=== PATIENT | male | born 1980 | race American Indian/Alaskan Native ===

== ENCOUNTER 2018-08-13 14:51 | Emergency (ER) | payer SELFPAY ==
[2018-08-13 15:17] VITALS: BP 124/69
--- NOTE | 2018-08-13 15:36 | Emergency Department Report ---
ED General Adult HPI - General Chief complaint: Pain General Stated complaint: FEET PAIN Time Seen by Provider: 08/13/18 15:26 Source: patient Mode of arrival: Ambulatory Limitations: No Limitations - History of Present Illness Initial comments: Mr. Garcia is 38-year-old male who fell one story approximately 2 weeks ago. He still has persistent back and bilateral foot pain. 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 Lumbar CT foot and ankle x-rays all without acute fracture but did reveal soft tissue swelling in the forefoot. -: Gradual, week(s) (2) Location: back, left, right, lower extremity Radiation: non-radiation Severity scale (0 -10): 8 Quality: aching Consistency: constant Improves with: rest Worsens with: movement Associated Symptoms: denies other symptoms - Related Data Previous Rx's Medication Instructions Recorded Last Taken Type FLUoxetine [PROzac] 10 mg PO QDAY #7 tablet 06/17/18 Unknown Rx [place] Carbonate 300 mg PO Q8H #21 tablet 06/17/18 Unknown Rx Naproxen [Naprosyn] 500 mg PO BID #20 tablet 06/17/18 Unknown Rx Olanzapine [Olanzapine Odt] 10 mg PO QDAY #7 tab.rapdis 06/17/18 Unknown Rx HYDROcodone/APAP 10-325 [Eugene 1 each PO Q6HR PRN #14 tablet 07/28/18 Unknown Rx 10/325] HYDROcodone/ACETAMINOPHEN [Eugene 1 each PO Q6H PRN #10 tablet 08/13/18 Unknown Rx 10-325 Tablet] Allergies Allergy/AdvReac Type Severity Reaction Status Date / Time No Known Allergies Allergy Verified 08/13/18 15:16 ED Review of Systems ROS: Stated complaint: FEET PAIN Other details as noted in HPI Constitutional: denies: fever, malaise Respiratory: denies: cough Cardiovascular: denies: chest pain ED Past Medical Hx - Past Medical History Previous Medical History?: Yes Hx Psychiatric Treatment: Yes (Bipolar) Hx Asthma: Yes - Surgical History Past Surgical History?: No - Social History Smoking Status: Never Smoker Substance Use Type: None - Medications Home Medications: Home Medications Medication Instructions Recorded Confirmed Last Taken Type FLUoxetine [PROzac] 10 mg PO QDAY #7 tablet 06/17/18 Unknown Rx [place] Carbonate 300 mg PO Q8H #21 tablet 06/17/18 Unknown Rx Naproxen [Naprosyn] 500 mg PO BID #20 tablet 06/17/18 Unknown Rx Olanzapine [Olanzapine Odt] 10 mg PO QDAY #7 tab.rapdis 06/17/18 Unknown Rx HYDROcodone/APAP 10-325 [Eugene 1 each PO Q6HR PRN #14 tablet 07/28/18 Unknown Rx 10/325] HYDROcodone/ACETAMINOPHEN [Eugene 1 each PO Q6H PRN #10 tablet 08/13/18 Unknown Rx 10-325 Tablet] ED Physical Exam - General Limitations: No Limitations General appearance: alert, in no apparent distress - Head Head exam: Present: atraumatic, normocephalic - Respiratory Respiratory exam: Absent: respiratory distress - Extremities Exam Extremities exam: Present: normal inspection - Back Exam Back exam: Present: normal inspection - Neurological Exam Neurological exam: Present: alert, oriented X3, normal gait ED Course Vital Signs 08/13/18 15:10 Temperature 98.2 F Pulse Rate 82 Respiratory 18 Rate Blood Pressure 124/69 O2 Sat by Pulse 96 Oximetry ED Medical Decision Making - Medical Decision Making I reviewed electronic record. It appears the patient did have significant trauma mechanism without severe injury. I performed inquiry/search on [place] PDMP. Without evidence of drug-seeking behavior, I felt 10 additional tablets of Eugene would be prudent and beneficial to patient Critical care attestation.: If time is entered above; I have spent that time in minutes in the direct care of this critically ill patient, excluding procedure time. ED Disposition Clinical Impression: Back pain, Bilateral foot pain Disposition: TO HOME OR SELFCARE Is pt being admited?: No Does the pt Need Aspirin: No Condition: Stable Prescriptions: HYDROcodone/ACETAMINOPHEN [Eugene 10-325 Tablet] 1 each PO Q6H PRN #10 tablet PRN Reason: Pain , Severe (7-10) Referrals: RIGOBERTO GREENBERG MD [Staff Physician] - 3-5 Days Forms: Work/School Release Form(ED)
== END 2018-08-13 15:45 | disposition home or self-care (01) ==
LOC: ED 14:51
DX: M79.671 Pain in right foot (principal); M79.672 Pain in left foot; M54.9 Dorsalgia, unspecified; F31.9 Bipolar disorder, unspecified; J45.909 Unspecified asthma, uncomplicated
CPT/HCPCS: 99282

== ENCOUNTER 2018-09-13 14:27 | Emergency (ER) | payer SELFPAY ==
[2018-09-13 14:36] VITALS: BP 128/74
--- NOTE | 2018-09-13 14:37 | Emergency Department Report ---
Blank Doc - Documentation Documentation: This is a 38-year-old male that presents with acute on chronic lower back pain. Stated lifts a lot of heavy stuff at work. Denies any urinary symptoms. This initial assessment diagnostic orders/clinical plan/treatment(s) is/are subject to change based on patient's health status, clinical progression and re- assessment by fellow clinical providers in the ED. Further treatment and workup at subsequent clinical providers discretion. Patient/guardians urged not to elope from ED s their condition may be serious if not clinically assessed and managed. Initial orders include: 1-Patient sent to [facility] for further evaluation and treatment
[2018-09-13] MEDS ORDERED: FLEXERIL PO ONE (17:21)
[2018-09-13] MEDS ORDERED: TORADOL IM ONE (17:21)
--- NOTE | 2018-09-13 17:22 | Emergency Department Report ---
ED Back Pain/Injury HPI - General Chief Complaint: Back Pain/Injury Stated Complaint: BACK PAIN Time Seen by Provider: 09/13/18 14:35 Source: patient Limitations: No Limitations - History of Present Illness Initial Comments: Patient is a 38-year-old male who comes to the ER often with pain. Today he is having his acute on chronic back pain. There is no new trauma. 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 Patient states he is not taking any home medications although the chart would suggest that he is supposed to be. Patient states he has no primary care doctor. -: Gradual, year(s) Similar Symptoms Previously: Yes Place: home Radiation: left leg, right leg Severity: mild Quality: dull Consistency: constant Worsens With: movement Context: while lifting Associated Symptoms: denies other symptoms - Related Data Previous Rx's Medication Instructions Recorded Last Taken Type FLUoxetine [PROzac] 10 mg PO QDAY #7 tablet 06/17/18 Unknown Rx [place] Carbonate 300 mg PO Q8H #21 tablet 06/17/18 Unknown Rx Olanzapine [Olanzapine Odt] 10 mg PO QDAY #7 tab.rapdis 06/17/18 Unknown Rx Cyclobenzaprine [Flexeril] 10 mg PO TID PRN #10 tablet 09/13/18 Unknown Rx predniSONE [Deltasone] 20 mg PO DAILY #5 tablet 09/13/18 Unknown Rx Allergies Allergy/AdvReac Type Severity Reaction Status Date / Time No Known Allergies Allergy Verified 09/13/18 14:32 ED Review of Systems ROS: Stated complaint: BACK PAIN Other details as noted in HPI Comment: All other systems reviewed and negative Constitutional: denies: see HPI Eyes: denies: eye pain ENT: denies: throat pain Respiratory: denies: orthopnea Endocrine: denies: intolerance to cold Gastrointestinal: denies: abdominal pain Genitourinary: denies: urgency Musculoskeletal: back pain Skin: denies: lesions Neurological: denies: headache Psychiatric: denies: anxiety Hematological/Lymphatic: denies: easy bleeding ED Back Pain Physical Exam - Exam General: Vital signs noted. No distress. Alert and acting appropriately. Back/Abdomen: Yes Straight Leg Raise Pain, No Perilumbar Tenderness, No Sacroiliac Tenderness, No Flank Tenderness Neuro: Yes Normal Sensation, Yes Normal DTR's, Yes Normal Gait, No Motor Weakness ED Course Vital Signs 09/13/18 14:34 Temperature 97.8 F Pulse Rate 83 Respiratory 16 Rate Blood Pressure 128/74 O2 Sat by Pulse 99 Oximetry ED Medical Decision Making - Medical Decision Making a/c pain see history no new trauma medicated for pain dc home with pcp follow up Critical care attestation.: If time is entered above; I have spent that time in minutes in the direct care of this critically ill patient, excluding procedure time. ED Disposition Clinical Impression: Back pain, Chronic pain Disposition: DC-01 TO HOME OR SELFCARE Is pt being admited?: No Does the pt Need Aspirin: No Condition: Stable Instructions: Low Back Strain (ED), Chronic Back Pain (ED) Additional Instructions: warm compresses med as ordered follow up pcp referral below Referrals: PRIMARY CARE [Primary Care Provider] - 3-5 Days [facility] [Outside] - 3-5 Days Time of Disposition: 17:24
[2018-09-13] MEDS ORDERED: DELTASONE PO NR (18:00)
== END 2018-09-13 17:34 | disposition home or self-care (01) ==
LOC: ED 14:27
DX: G89.29 Other chronic pain (principal); M54.9 Dorsalgia, unspecified
CPT/HCPCS: 96372; 99282; J1885

== ENCOUNTER 2019-03-16 03:25 | Inpatient (IN) | payer OTHER ==
[2019-03-16] MEDS ORDERED: NACL 0.9% 1000 ML 1,000 ML IV ONE (04:42)
--- NOTE | 2019-03-16 04:52 | Emergency Department Report ---
ED Neuro Deficit HPI - General Chief Complaint: Extremity Injury, Upper Stated Complaint: ARM PAIN Time Seen by Provider: 03/16/19 04:42 Source: patient Mode of arrival: Ambulatory Limitations: No Limitations - History of Present Illness Initial Comments: Mr. Garcia is a 39 yo male with hx of bipolar disorder and asthma who presents with right arm weakness and pain. He woke up with arm weakness. He felt as if he may have slept wrong on the arm. He has burning and tingling his fingers. Can not bend the elbow or wiggle fingers. Can only shrug at right shoulder. No speech or gait difficulty. Brought to Ed by relative. He explained that he had a small stroke while incarcerated. He has slurred speech at that time. No hx of DM, HTN, dyslipidemia. +tobacco use He awakened with symptoms 2 hours ago. -: This morning Location: right arm Presenting Symptoms: Present: Weak/Paralyzed One Side History of same: No (hx of slurred speech) Place: home Severity: severe Quality: weak, tingling Improves With: none Worsens With: none On Anticoagulants: No Context: sudden onset Associated Symptoms: denies other symptoms - Related Data Home Medications: Previous Rx's Medication Instructions Recorded Last Taken Type FLUoxetine [PROzac] 10 mg PO QDAY #7 tablet 06/17/18 Unknown Rx Rosank[place] Carbonate 300 mg PO Q8H #21 tablet 06/17/18 Unknown Rx Olanzapine [Olanzapine Odt] 10 mg PO QDAY #7 tab.rapdis 06/17/18 Unknown Rx Cyclobenzaprine [Flexeril] 10 mg PO TID PRN #10 tablet 09/13/18 Unknown Rx predniSONE [Deltasone] 20 mg PO DAILY #5 tablet 09/13/18 Unknown Rx Prednisone [predniSONE 10 mg 10 mg PO .TAPER #1 tab.ds.pk 12/08/18 Unknown Rx (6-Day Pack, 21 Tabs)] traMADol [Ultram 50 MG tab] 50 mg PO Q6HR PRN #12 tablet 12/08/18 Unknown Rx Allergies/Adverse Reactions: Allergies Allergy/AdvReac Type Severity Reaction Status Date / Time No Known Allergies Allergy Verified 09/13/18 14:32 ED Review of Systems ROS: Stated complaint: ARM PAIN Other details as noted in HPI Comment: All other systems reviewed and negative Constitutional: denies: fever, malaise Respiratory: denies: cough Cardiovascular: denies: chest pain ED Past Medical Hx - Past Medical History Previous Medical History?: Yes Hx Psychiatric Treatment: Yes (Bipolar) Hx Asthma: Yes - Surgical History Past Surgical History?: No - Social History Smoking Status: Current Every Day Smoker Substance Use Type: Alcohol - Medications Home Medications: Home Medications Medication Instructions Recorded Confirmed Last Taken Type FLUoxetine [PROzac] 10 mg PO QDAY #7 tablet 06/17/18 Unknown Rx Rosanky Carbonate 300 mg PO Q8H #21 tablet 06/17/18 Unknown Rx Olanzapine [Olanzapine Odt] 10 mg PO QDAY #7 tab.rapdis 06/17/18 Unknown Rx Cyclobenzaprine [Flexeril] 10 mg PO TID PRN #10 tablet 09/13/18 Unknown Rx predniSONE [Deltasone] 20 mg PO DAILY #5 tablet 09/13/18 Unknown Rx Prednisone [predniSONE 10 mg 10 mg PO .TAPER #1 tab.ds.pk 12/08/18 Unknown Rx (6-Day Pack, 21 Tabs)] traMADol [Ultram 50 MG tab] 50 mg PO Q6HR PRN #12 tablet 12/08/18 Unknown Rx ED Neuro Physical Exam - General Limitations: No Limitations General appearance: alert, in no apparent distress Suspected Stroke: Yes - Head Head exam: Present: atraumatic, normocephalic - Eye Eye exam: Present: normal appearance - ENT ENT exam: Present: mucous membranes moist - Neck Neck exam: Present: normal inspection, full ROM. Absent: tenderness, meningismus - Respiratory Respiratory exam: Present: normal lung sounds bilaterally. Absent: respiratory distress, wheezes, rales, rhonchi - Cardiovascular Cardiovascular Exam: Present: regular rate, normal rhythm, normal heart sounds. Absent: systolic murmur, diastolic murmur, rubs, gallop - GI/Abdominal GI/Abdominal exam: Present: soft, normal bowel sounds. Absent: distended, tenderness, guarding, rebound - Rectal Rectal exam: Present: deferred - Extremities Exam Extremities exam: Present: normal inspection - Back Exam Back exam: Present: normal inspection - Neurological Exam Neurological exam: Present: alert, oriented X3 - NIHSS Assessment Interval: Baseline 1a. Level of Consciousness: alert/keenly responsive 1b. LOC Questions: answers both correctly 1c. LOC Commands: performs tasks correctly 2. Best Gaze: normal 3. Visual: no visual loss 4. Facial Palsy: normal symmetrical movement 5b. Motor Arm Right: no movement 5a. Motor Arm Left: no drift 6a. Motor Leg Left: no drift 6b. Motor Leg Right: no drift 7. Limb Ataxia: absent 8. Sensory: normal 9. Best Language: no aphasia 10. Dysarthria: normal 11. Extinction/Inattention: no abnormality Total Score: 4 Stroke Severity: Minor Stroke - Psychiatric Psychiatric exam: Present: normal affect, normal mood - Skin Skin exam: Present: warm, dry, intact, normal color. Absent: rash ED Course Vital Signs 03/16/19 03/16/19 03/16/19 03:38 04:00 05:20 Temperature 97.8 F Pulse Rate 81 72 Respiratory 18 15 12 Rate Blood Pressure 112/76 Blood Pressure 116/74 [Left] O2 Sat by Pulse 95 97 100 Oximetry - Lab Data Result diagrams: 03/16/19 02:47 03/16/19 04:50 Lab Results 03/16/19 03/16/19 03/16/19 Range/Units 02:47 04:50 04:50 WBC 10.5 (4.5-11.0) K/mm3 RBC 4.18 (3.65-5.03) M/mm3 Hgb 12.5 (11.8-15.2) gm/dl Hct 38.2 (35.5-45.6) % MCV 91 (84-94) fl MCH 30 (28-32) pg MCHC 33 (32-34) % RDW 13.6 (13.2-15.2) % Plt Count 195 (140-440) K/mm3 Lymph % (Auto) 9.8 L (13.4-35.0) % Wood % (Auto) 6.4 (0.0-7.3) % Eos % (Auto) 0.7 (0.0-4.3) % Baso % (Auto) 0.2 (0.0-1.8) % Lymph # 1.0 L (1.2-5.4) K/mm3 Wood # 0.7 (0.0-0.8) K/mm3 Eos # 0.1 (0.0-0.4) K/mm3 Baso # 0.0 (0.0-0.1) K/mm3 Seg Neutrophils % 82.9 H (40.0-70.0) % Seg Neutrophils # 8.7 H (1.8-7.7) K/mm3 PT 12.9 (12.2-14.9) Sec. INR 1.00 (0.87-1.13) APTT 23.5 L (24.2-36.6) Sec. Sodium 140 (137-145) mmol/L Potassium 3.8 (3.6-5.0) mmol/L Chloride 104.3 (98-107) mmol/L Carbon Dioxide 24 (22-30) mmol/L Anion Gap 16 mmol/L BUN 9 (9-20) mg/dL Creatinine 1.3 (0.8-1.5) mg/dL Estimated GFR > 60 ml/min BUN/Creatinine Ratio 7 % Glucose 221 H (75-100) mg/dL POC Glucose (70-105) Calcium 9.1 (8.4-10.2) mg/dL Total Bilirubin 1.10 (0.1-1.2) mg/dL AST 41 H (5-40) units/L ALT 19 (7-56) units/L Alkaline Phosphatase 99 (35-129) units/L Troponin T < 0.010 (0.00-0.029) ng/mL Total Protein 7.0 (6.3-8.2) g/dL Albumin 4.3 (3.9-5) g/dL Albumin/Globulin Ratio 1.6 % Salicylates (2.8-20.0) mg/dL Acetaminophen (10.0-30.0) ug/mL Rosanky (0.0-1.2) mmol/L Plasma/Serum Alcohol (0-0.07) % 03/16/19 03/16/19 03/16/19 Range/Units 04:50 04:52 04:53 WBC (4.5-11.0) K/mm3 RBC (3.65-5.03) M/mm3 Hgb (11.8-15.2) gm/dl Hct (35.5-45.6) % MCV (84-94) fl MCH (28-32) pg MCHC (32-34) % RDW (13.2-15.2) % Plt Count (140-440) K/mm3 Lymph % (Auto) (13.4-35.0) % Wood % (Auto) (0.0-7.3) % Eos % (Auto) (0.0-4.3) % Baso % (Auto) (0.0-1.8) % Lymph # (1.2-5.4) K/mm3 Wood # (0.0-0.8) K/mm3 Eos # (0.0-0.4) K/mm3 Baso # (0.0-0.1) K/mm3 Seg Neutrophils % (40.0-70.0) % Seg Neutrophils # (1.8-7.7) K/mm3 PT (12.2-14.9) Sec. INR (0.87-1.13) APTT (24.2-36.6) Sec. Sodium (137-145) mmol/L Potassium (3.6-5.0) mmol/L Chloride (98-107) mmol/L Carbon Dioxide (22-30) mmol/L Anion Gap mmol/L BUN (9-20) mg/dL Creatinine (0.8-1.5) mg/dL Estimated GFR ml/min BUN/Creatinine Ratio % Glucose (75-100) mg/dL POC Glucose 223 H (70-105) Calcium (8.4-10.2) mg/dL Total Bilirubin (0.1-1.2) mg/dL AST (5-40) units/L ALT (7-56) units/L Alkaline Phosphatase (35-129) units/L Troponin T (0.00-0.029) ng/mL Total Protein (6.3-8.2) g/dL Albumin (3.9-5) g/dL Albumin/Globulin Ratio % Salicylates < 0.3 L (2.8-20.0) mg/dL Acetaminophen (10.0-30.0) ug/mL Rosanky 0.1 (0.0-1.2) mmol/L Plasma/Serum Alcohol < 0.01 (0-0.07) % 03/16/19 Range/Units 04:53 WBC (4.5-11.0) K/mm3 RBC (3.65-5.03) M/mm3 Hgb (11.8-15.2) gm/dl Hct (35.5-45.6) % MCV (84-94) fl MCH (28-32) pg MCHC (32-34) % RDW (13.2-15.2) % Plt Count (140-440) K/mm3 Lymph % (Auto) (13.4-35.0) % Wood % (Auto) (0.0-7.3) % Eos % (Auto) (0.0-4.3) % Baso % (Auto) (0.0-1.8) % Lymph # (1.2-5.4) K/mm3 Wood # (0.0-0.8) K/mm3 Eos # (0.0-0.4) K/mm3 Baso # (0.0-0.1) K/mm3 Seg Neutrophils % (40.0-70.0) % Seg Neutrophils # (1.8-7.7) K/mm3 PT (12.2-14.9) Sec. INR (0.87-1.13) APTT (24.2-36.6) Sec. Sodium (137-145) mmol/L Potassium (3.6-5.0) mmol/L Chloride (98-107) mmol/L Carbon Dioxide (22-30) mmol/L Anion Gap mmol/L BUN (9-20) mg/dL Creatinine (0.8-1.5) mg/dL Estimated GFR ml/min BUN/Creatinine Ratio % Glucose (75-100) mg/dL POC Glucose (70-105) Calcium (8.4-10.2) mg/dL Total Bilirubin (0.1-1.2) mg/dL AST (5-40) units/L ALT (7-56) units/L Alkaline Phosphatase (35-129) units/L Troponin T (0.00-0.029) ng/mL Total Protein (6.3-8.2) g/dL Albumin (3.9-5) g/dL Albumin/Globulin Ratio % Salicylates (2.8-20.0) mg/dL Acetaminophen < 5.0 L (10.0-30.0) ug/mL Rosanky (0.0-1.2) mmol/L Plasma/Serum Alcohol (0-0.07) % - Medical Decision Making Upon arrival to the treatment room, the nurse came to me for hypotension. When I evaluated patient he had normal vital signs upon arrival. I suspect that blood pressures due to equipment failure. I then realized that he had severe weakness in his right upper extremity. At that time I initiated code stroke. Unclear time of onset. Mr. garcia stated that he awakened with arm weakness 2 hours prior. Arm weakness DDX: acute CVA vs cervical radiculopathy, teleneurologist states that patient will need MRI brain and MRI cervical spine to delineate. When I reassessed Mr. garcia, he had both hands folded on his lap. It is apparent that he does have some strength in the extremity. According teleneurologist, time last normal occurred 9:30 PM. He is not a candidate for TPA. Admitted to hospitalist for further evaluation Critical Care Time: Yes Critical care time in (mins) excluding proc time.: 40 Critical care attestation.: If time is entered above; I have spent that time in minutes in the direct care of this critically ill patient, excluding procedure time. 40 minutes of critical care time excluding procedures were used in the care of the patient. Patient required multiple assessments and interventions. I rev iewed the electronic medical record. I spoke with consultants involved in the care of the patient. ED Disposition Clinical Impression: Weakness of right upper extremity Disposition: - OP ADMIT IP TO THIS HOSP Is pt being admited?: No Does the pt Need Aspirin: No Condition: Stable
[2019-03-16 05:04] LABS: Basophils % (Auto) 0.2 % (0.0-1.8); Eosinophils # (Auto) 0.1 K/mm3 (0.0-0.4); Eosinophils % (Auto) 0.7 % (0.0-4.3); Hematocrit 38.2 % (35.5-45.6); Hemoglobin 12.5 gm/dl (11.8-15.2); Lymphocytes % (Auto) 9.8 % (13.4-35.0); Mean Corpuscular HGB Conc 33 % (32-34); Mean Corpuscular Volume 91 fl (84-94); Monocytes # (Auto) 0.7 K/mm3 (0.0-0.8); Monocytes % (Auto) 6.4 % (0.0-7.3); Platelet Count 195 K/mm3 (140-440); Red Blood Count 4.18 M/mm3 (3.65-5.03); Red Cell Distribution Width 13.6 % (13.2-15.2)
[2019-03-16 05:16] LABS: Partial Thromboplastin Time 23.5 Sec. (24.2-36.6)
--- NOTE | 2019-03-16 05:19 | Emergency Department Report ---
ED General Adult HPI - General Chief complaint: Extremity Injury, Upper Stated complaint: ARM PAIN Time Seen by Provider: 03/16/19 04:42 Source: patient Mode of arrival: Ambulatory Limitations: No Limitations - History of Present Illness Initial comments: [facility] Date of Service: 03/16/2019 04:46:43 Impression: Right arm weakness and numbness Metrics: Last Known Well: 03/15/2019 21:00:00 [employer] Notification Time: 03/16/2019 04:46:43 Arrival Time: 03/16/2019 03:25:00 Stamp Time: 03/16/2019 04:46:43 Time First Login Attempt: 03/16/2019 04:48:58 Video Start Time: 03/16/2019 04:48:58 Symptoms: right arm numbness NIHSS Start Assessment Time: 03/16/2019 05:06:31 Patient is not a candidate for tPA. Patient was not deemed candidate for tPA thrombolytics because of Last Well Known above 4.5 hours. Video End Time: 03/16/2019 05:14:49 CT head showed no acute hemorrhage or acute core infarct. CT head was reviewed. Advanced imaging was not obtained as the presentation was not suggestive of Large Vessel Occlusive Disease. ER physician notified of the decision on thrombolytics management. Comments: Given the symptoms started with bilateral arm numbness would consider C spine lesion most likely but a left hemisphere stroke is in the differential as well. Our recommendations are outlined below. Recommendations: Initiate Aspirin 81 MG Daily MRI C spine Recommended Scan: MRI Head Without Contrast Lipid Panel to Be Obtained, if Not Done in the Last Three Months Therapies: Physical Therapy, Occupational Therapy, Speech Therapy Assessment When Applicable Dysphaghia Screen: Swallow Evaluation, Bedside DVT prophylaxis: SCDs, Pneumatic Compression Disposition: Follow up with Teleneurology Follow up Sign Out: Discussed with Emergency Department Provider History of Present Illness: Patient is a 39 years old Male. Patient was brought by EMS for symptoms of right arm numbness 39 yo M with history of bipolar, stroke, and asthma who presents with bilateral arm numbness and right sided weakness that he woke up at 2:00. he went to sleep at 21:00 and it was normal at that time, His left arm improved but the right remains weak with a burning sensation. He is having neck pain now as well that is new tonight. CT head showed no acute hemorrhage or acute core infarct. CT head was reviewed. Examination: 1A: Level of Consciousness - Alert; keenly responsive + 0 1B: Ask Month and Age - Both Questions Right + 0 1C: Blink Eyes & Squeeze Hands - Performs Both Tasks + 0 2: Test Horizontal Extraocular Movements - Normal + 0 3: Test Visual Burdick - No Visual Loss + 0 4: Test Facial Palsy (Use Grimace if Obtunded) - Normal symmetry + 0 5A: Test Left Arm Motor Drift - No Drift for 10 Seconds + 0 5B: Test Right Arm Motor Drift - Some Effort Against Clayton + 2 6A: Test Left Leg Motor Drift - No Drift for 5 Seconds + 0 6B: Test Right Leg Motor Drift - No Drift for 5 Seconds + 0 7: Test Limb Ataxia (FNF/Heel-Bunch) - No Ataxia + 0 8: Test Sensation - Complete Loss: Cannot Sense Being Touched At All + 2 9: Test Language/Aphasia - Normal; No aphasia + 0 10: Test Dysarthria - Normal + 0 11: Test Extinction/Inattention - No abnormality + 0 NIHSS Score: 4 Patient was informed the Neurology Consult would happen via TeleHealth consult by way of interactive audio and video telecommunications and consented to receiving care in this manner. Due to the immediate potential for life-threatening deterioration due to und erlying acute neurologic illness, I spent 35 minutes providing critical care. This time includes time for face to face visit via telemedicine, review of medical records, imaging studies and discussion of findings with providers, the patient and/or family. Dr Brenda Amador [facility] - Related Data Previous Rx's Medication Instructions Recorded Last Taken Type FLUoxetine [PROzac] 10 mg PO QDAY #7 tablet 06/17/18 Unknown Rx Morganza Carbonate 300 mg PO Q8H #21 tablet 06/17/18 Unknown Rx Olanzapine [Olanzapine Odt] 10 mg PO QDAY #7 tab.rapdis 06/17/18 Unknown Rx Cyclobenzaprine [Flexeril] 10 mg PO TID PRN #10 tablet 09/13/18 Unknown Rx predniSONE [Deltasone] 20 mg PO DAILY #5 tablet 09/13/18 Unknown Rx Prednisone [predniSONE 10 mg 10 mg PO .TAPER #1 tab.ds.pk 12/08/18 Unknown Rx (6-Day Pack, 21 Tabs)] traMADol [Ultram 50 MG tab] 50 mg PO Q6HR PRN #12 tablet 12/08/18 Unknown Rx Allergies Allergy/AdvReac Type Severity Reaction Status Date / Time No Known Allergies Allergy Verified 09/13/18 14:32 ED Review of Systems ROS: Stated complaint: ARM PAIN Other details as noted in HPI Constitutional: denies: fever, malaise Respiratory: denies: cough Cardiovascular: denies: chest pain ED Past Medical Hx - Past Medical History Previous Medical History?: Yes Hx Psychiatric Treatment: Yes (Bipolar) Hx Asthma: Yes - Surgical History Past Surgical History?: No - Social History Smoking Status: Current Every Day Smoker Substance Use Type: Alcohol - Medications Home Medications: Home Medications Medication Instructions Recorded Confirmed Last Taken Type FLUoxetine [PROzac] 10 mg PO QDAY #7 tablet 06/17/18 Unknown Rx Morganza Carbonate 300 mg PO Q8H #21 tablet 06/17/18 Unknown Rx Olanzapine [Olanzapine Odt] 10 mg PO QDAY #7 tab.rapdis 06/17/18 Unknown Rx Cyclobenzaprine [Flexeril] 10 mg PO TID PRN #10 tablet 09/13/18 Unknown Rx predniSONE [Deltasone] 20 mg PO DAILY #5 tablet 09/13/18 Unknown Rx Prednisone [predniSONE 10 mg 10 mg PO .TAPER #1 tab.ds.pk 12/08/18 Unknown Rx (6-Day Pack, 21 Tabs)] traMADol [Ultram 50 MG tab] 50 mg PO Q6HR PRN #12 tablet 12/08/18 Unknown Rx ED Physical Exam - General Limitations: No Limitations General appearance: alert, in no apparent distress ED Course Vital Signs 03/16/19 03/16/19 03:38 04:00 Temperature 97.8 F Pulse Rate 81 Respiratory 18 15 Rate Blood Pressure 112/76 O2 Sat by Pulse 95 97 Oximetry ED Medical Decision Making - Lab Data Result diagrams: 03/16/19 02:47 Critical care attestation.: If time is entered above; I have spent that time in minutes in the direct care of this critically ill patient, excluding procedure time. ED Disposition Clinical Impression: Weakness of right upper extremity Disposition: DC-09 OP ADMIT IP TO THIS HOSP Is pt being admited?: Yes Condition: Stable Referrals: MARTÍN KOENIG MD [Primary Care Provider] - 3-5 Days
[2019-03-16 05:24] LABS: Alanine Aminotransferase 19 units/L (7-56); Albumin 4.3 g/dL (3.9-5); BUN/Creatinine Ratio 7; Blood Urea Nitrogen 9 mg/dL (9-20); Calcium 9.1 mg/dL (8.4-10.2); Hemolysis Index 9
[2019-03-16] MEDS ORDERED: BABY ASPIRIN PO ONE (05:31)
[2019-03-16] MEDS ORDERED: TYLENOL PO PRN ×2 (05:53→06:29)
[2019-03-16] MEDS ORDERED: ZOFRAN IV PRN ×2 (05:53→06:29)
[2019-03-16] MEDS ORDERED: SODIUM CHLORIDE FLUSH SYRINGE 10 ML IV PRN ×2 (05:53→06:29)
[2019-03-16] MEDS ORDERED: MORPHINE IV PRN (05:53)
[2019-03-16] MEDS ORDERED: MILK OF MAGNESIA PO PRN ×2 (05:53→06:29)
--- NOTE | 2019-03-16 06:06 | History and Physical Report ---
<MAHNAZ SILVA - Last Filed: 03/16/19 06:52> History of Present Illness Date of examination: 03/16/19 Date of admission: 03/16/2019 Chief complaint: chest pain History of present illness: Pt is a 39 year old male with PMHx of bipolar disorder, depression and asthma who presents to the ER with c/o right arm weakness and pain. Pt states that he woke up around 2 am with inability to move the right arm. Pt denies any injury of the arm, he denies any h/o high BP, he denies any family of stroke but reports a self h/o of small stroke while incarcerated some times ago. Pt reports a burning sensation from the upper arm down to his lower arm, he reports pain and tinglin of his fingers in the right arm. Pt reports complete inability to move the arm or shrug at right shoulder. His speech is clear and coherent, all other exam are WNL. Review of pt's medical record showed that pt had multiple hospital visits for back pain or arm pain. A CT of the brain was negative, pt is admitted for further evaluation and treatment. Past History Past Medical History: stroke, other (asthma, bipolar, depression) Social history: no significant social history Family history: no significant family history Medications and Allergies Allergies Allergy/AdvReac Type Severity Reaction Status Date / Time No Known Allergies Allergy Verified 09/13/18 14:32 Home Medications Medication Instructions Recorded Confirmed Last Taken Type FLUoxetine [PROzac] 10 mg PO QDAY #7 tablet 06/17/18 Unknown Rx Lillian Carbonate 300 mg PO Q8H #21 tablet 06/17/18 Unknown Rx Olanzapine [Olanzapine Odt] 10 mg PO QDAY #7 tab.rapdis 06/17/18 Unknown Rx Cyclobenzaprine [Flexeril] 10 mg PO TID PRN #10 tablet 09/13/18 Unknown Rx predniSONE [Deltasone] 20 mg PO DAILY #5 tablet 09/13/18 Unknown Rx Prednisone [predniSONE 10 mg 10 mg PO .TAPER #1 tab.ds.pk 12/08/18 Unknown Rx (6-Day Pack, 21 Tabs)] traMADol [Ultram 50 MG tab] 50 mg PO Q6HR PRN #12 tablet 12/08/18 Unknown Rx Active Meds: Active Medications Acetaminophen (Tylenol) 650 mg PO Q4H PRN PRN Reason: Pain MILD(1-3)/Fever >100.5/MEJIA Aspirin (Ecotrin) 325 mg PO QDAY NATALIYA Atorvastatin Calcium (Lipitor) 40 mg PO QHS NATALIYA Enoxaparin Sodium (Lovenox) 40 mg SUB-Q QDAY NATALIYA Magnesium Hydroxide (Milk Of Magnesia) 30 ml PO Q4H PRN PRN Reason: Constipation Morphine Sulfate (Morphine) 2 mg IV Q4H PRN PRN Reason: Pain, Moderate (4-6) Ondansetron HCl (Zofran) 4 mg IV Q8H PRN PRN Reason: Nausea And Vomiting Sodium Chloride (Sodium Chloride Flush Syringe 10 Ml) 10 ml IV BID NATALIYA Sodium Chloride (Sodium Chloride Flush Syringe 10 Ml) 10 ml IV PRN PRN PRN Reason: LINE FLUSH Review of Systems Musculoskeletal: other (right arm pain) Neurological: weakness (right arm), numbness Exam - Constitutional Vitals: Temp Pulse Resp BP Pulse Ox 97.8 F 72 12 116/74 100 03/16/19 03:38 03/16/19 05:20 03/16/19 05:20 03/16/19 05:20 03/16/19 05:20 General appearance: Present: no acute distress - EENT Eyes: Present: PERRL ENT: hearing intact - Neck Neck: Present: normal ROM - Respiratory Respiratory effort: normal Respiratory: bilateral: CTA - Cardiovascular Rhythm: regular - Extremities Extremities: no ischemia, No edema Peripheral Pulses: within normal limits - Abdominal General gastrointestinal: Present: non-tender, non-distended Male genitourinary: Present: deferred - Rectal Rectal Exam: deferred - Integumentary Integumentary: Present: warm, dry - Musculoskeletal Musculoskeletal: right sided weakness (right arm weakness) - Psychiatric Psychiatric: cooperative - Neurologic Neurologic: focal deficits (right arm numbness) Results - Labs CBC & Chem 7: 03/16/19 02:47 03/16/19 04:50 Labs: Laboratory Last Values WBC 10.5 K/mm3 (4.5-11.0) 03/16/19 02:47 RBC 4.18 M/mm3 (3.65-5.03) 03/16/19 02:47 Hgb 12.5 gm/dl (11.8-15.2) 03/16/19 02:47 Hct 38.2 % (35.5-45.6) 03/16/19 02:47 MCV 91 fl (84-94) 03/16/19 02:47 MCH 30 pg (28-32) 03/16/19 02:47 MCHC 33 % (32-34) 03/16/19 02:47 RDW 13.6 % (13.2-15.2) 03/16/19 02:47 Plt Count 195 K/mm3 (140-440) 03/16/19 02:47 Lymph % (Auto) 9.8 % (13.4-35.0) L 03/16/19 02:47 Kinney % (Auto) 6.4 % (0.0-7.3) 03/16/19 02:47 Eos % (Auto) 0.7 % (0.0-4.3) 03/16/19 02:47 Baso % (Auto) 0.2 % (0.0-1.8) 03/16/19 02:47 Lymph # 1.0 K/mm3 (1.2-5.4) L 03/16/19 02:47 Kinney # 0.7 K/mm3 (0.0-0.8) 03/16/19 02:47 Eos # 0.1 K/mm3 (0.0-0.4) 03/16/19 02:47 Baso # 0.0 K/mm3 (0.0-0.1) 03/16/19 02:47 Seg Neutrophils % 82.9 % (40.0-70.0) H 03/16/19 02:47 Seg Neutrophils # 8.7 K/mm3 (1.8-7.7) H 03/16/19 02:47 PT 12.9 Sec. (12.2-14.9) 03/16/19 04:50 INR 1.00 (0.87-1.13) 03/16/19 04:50 APTT 23.5 Sec. (24.2-36.6) L 03/16/19 04:50 Sodium 140 mmol/L (137-145) 03/16/19 04:50 Potassium 3.8 mmol/L (3.6-5.0) 03/16/19 04:50 Chloride 104.3 mmol/L (98-107) 03/16/19 04:50 Carbon Dioxide 24 mmol/L (22-30) 03/16/19 04:50 16 mmol/L 03/16/19 04:50 BUN 9 mg/dL (9-20) 03/16/19 04:50 1.3 mg/dL (0.8-1.5) 03/16/19 04:50 Estimated GFR > 60 ml/min 03/16/19 04:50 7 % 03/16/19 04:50 Glucose 221 mg/dL (75-100) H 03/16/19 04:50 POC Glucose 223 (70-105) H 03/16/19 04:52 Calcium 9.1 mg/dL (8.4-10.2) 03/16/19 04:50 1.10 mg/dL (0.1-1.2) 03/16/19 04:50 AST 41 units/L (5-40) H 03/16/19 04:50 ALT 19 units/L (7-56) 03/16/19 04:50 99 units/L (35-129) 03/16/19 04:50 < 0.010 ng/mL (0.00-0.029) 03/16/19 04:50 7.0 g/dL (6.3-8.2) 03/16/19 04:50 4.3 g/dL (3.9-5) 03/16/19 04:50 1.6 % 03/16/19 04:50 Salicylates < 0.3 mg/dL (2.8-20.0) L 03/16/19 04:53 Acetaminophen < 5.0 ug/mL (10.0-30.0) L 03/16/19 04:53 Lillian 0.1 mmol/L (0.0-1.2) 03/16/19 04:53 Plasma/Serum Alcohol < 0.01 % (0-0.07) 03/16/19 04:50 Assessment and Plan Assessment and plan: 1. Right arm numbness and weakness 2. R/o Acute CVA 3. H/o prior CVA (per Pt) 4. h/o bipolar disorder 5. h/o depression 6. h/o Asthma 7. H/o drug used disorde Plan: Pt is admitted to [facility] neurology for evaluation Continue neuro check Q4hr MRI of the brain MRA of the head and neck 2D echo resume home meds DVT prophylaxis with SD Further plan per neurology recommendation Consult PT/OT Consult case management for DC plan Advance Directives: Yes VTE prophylaxis?: Mechanical Plan of care discussed with patient/family: Yes <JACKI JONAS - Last Filed: 03/16/19 07:04> History of Present Illness Date of admission: 03/16/19 06:22 Medications and Allergies Active Meds: Active Medications Acetaminophen (Tylenol) 650 mg PO Q4H PRN PRN Reason: Pain MILD(1-3)/Fever >100.5/MEJIA Aspirin (Ecotrin) 325 mg PO QDAY NATALIYA Atorvastatin Calcium (Lipitor) 40 mg PO QHS NATALIYA Bisacodyl (Dulcolax) 10 mg NV QDAY PRN PRN Reason: Constipation Cyclobenzaprine HCl (Flexeril) 10 mg PO TID PRN PRN Reason: Muscle Spasm Enoxaparin Sodium (Lovenox) 40 mg SUB-Q QDAY NATALIYA Fluoxetine HCl (Prozac) 10 mg PO QDAY [facility] Magnesium Hydroxide (Milk Of Magnesia) 30 ml PO Q4H PRN PRN Reason: Constipation Metoclopramide HCl (Reglan) 10 mg PO Q6H PRN PRN Reason: Nausea And Vomiting Miscellaneous Medication (Lillian Carbonate [Lillian Carbonate]) 300 mg PO Q8H [facility] Miscellaneous Medication (Olanzapine [Olanzapine Odt]) 10 mg PO QDAY [facility] Miscellaneous Medication (Prednisone [Prednisone 10 Mg (6-Day Pack, 21 Tabs)]) 10 mg PO .TAPER NATALIYA Morphine Sulfate (Morphine) 2 mg IV Q4H PRN PRN Reason: Pain, Moderate (4-6) Ondansetron HCl (Zofran) 4 mg IV Q8H PRN PRN Reason: Nausea And Vomiting Prednisone (Deltasone) 20 mg PO DAILY NATALIYA Promethazine HCl (Phenergan) 25 mg NV Q6H PRN PRN Reason: Nausea And Vomiting Sodium Chloride (Sodium Chloride Flush Syringe 10 Ml) 10 ml IV BID NATALIYA Sodium Chloride (Sodium Chloride Flush Syringe 10 Ml) 10 ml IV PRN PRN PRN Reason: LINE FLUSH Tramadol HCl (Ultram) 50 mg PO Q6HR PRN PRN Reason: Pain Exam - Constitutional Vitals: Temp Pulse Resp BP Pulse Ox 97.8 F 70 12 127/78 100 03/16/19 03:38 03/16/19 06:20 03/16/19 06:20 03/16/19 06:20 03/16/19 05:20 Results - Labs CBC & Chem 7: 03/16/19 02:47 03/16/19 04:50 Labs: Laboratory Last Values WBC 10.5 K/mm3 (4.5-11.0) 03/16/19 02:47 RBC 4.18 M/mm3 (3.65-5.03) 03/16/19 02:47 Hgb 12.5 gm/dl (11.8-15.2) 03/16/19 02:47 Hct 38.2 % (35.5-45.6) 03/16/19 02:47 MCV 91 fl (84-94) 03/16/19 02:47 MCH 30 pg (28-32) 03/16/19 02:47 MCHC 33 % (32-34) 03/16/19 02:47 RDW 13.6 % (13.2-15.2) 03/16/19 02:47 Plt Count 195 K/mm3 (140-440) 03/16/19 02:47 Lymph % (Auto) 9.8 % (13.4-35.0) L 03/16/19 02:47 Kinney % (Auto) 6.4 % (0.0-7.3) 03/16/19 02:47 Eos % (Auto) 0.7 % (0.0-4.3) 03/16/19 02:47 Baso % (Auto) 0.2 % (0.0-1.8) 03/16/19 02:47 Lymph # 1.0 K/mm3 (1.2-5.4) L 03/16/19 02:47 Kinney # 0.7 K/mm3 (0.0-0.8) 03/16/19 02:47 Eos # 0.1 K/mm3 (0.0-0.4) 03/16/19 02:47 Baso # 0.0 K/mm3 (0.0-0.1) 03/16/19 02:47 Seg Neutrophils % 82.9 % (40.0-70.0) H 03/16/19 02:47 Seg Neutrophils # 8.7 K/mm3 (1.8-7.7) H 03/16/19 02:47 PT 12.9 Sec. (12.2-14.9) 03/16/19 04:50 INR 1.00 (0.87-1.13) 03/16/19 04:50 APTT 23.5 Sec. (24.2-36.6) L 03/16/19 04:50 Sodium 140 mmol/L (137-145) 03/16/19 04:50 Potassium 3.8 mmol/L (3.6-5.0) 03/16/19 04:50 Chloride 104.3 mmol/L (98-107) 03/16/19 04:50 Carbon Dioxide 24 mmol/L (22-30) 03/16/19 04:50 16 mmol/L 03/16/19 04:50 BUN 9 mg/dL (9-20) 03/16/19 04:50 1.3 mg/dL (0.8-1.5) 03/16/19 04:50 Estimated GFR > 60 ml/min 03/16/19 04:50 7 % 03/16/19 04:50 Glucose 221 mg/dL (75-100) H 03/16/19 04:50 POC Glucose 223 (70-105) H 03/16/19 04:52 Calcium 9.1 mg/dL (8.4-10.2) 03/16/19 04:50 1.10 mg/dL (0.1-1.2) 03/16/19 04:50 AST 41 units/L (5-40) H 03/16/19 04:50 ALT 19 units/L (7-56) 03/16/19 04:50 99 units/L (35-129) 03/16/19 04:50 < 0.010 ng/mL (0.00-0.029) 03/16/19 04:50 7.0 g/dL (6.3-8.2) 03/16/19 04:50 4.3 g/dL (3.9-5) 03/16/19 04:50 1.6 % 03/16/19 04:50 Salicylates < 0.3 mg/dL (2.8-20.0) L 03/16/19 04:53 Acetaminophen < 5.0 ug/mL (10.0-30.0) L 03/16/19 04:53 Lillian 0.1 mmol/L (0.0-1.2) 03/16/19 04:53 Plasma/Serum Alcohol < 0.01 % (0-0.07) 03/16/19 04:50 Assessment and Plan Assessment and plan: 39-year-old man with a history of asthma, depression, bipolar pulse emergency room with complaints of right arm weakness and numbness, loss well-known timing was 10 PM last night. Hold MRI of the head and neck, echo, check MRI of the C-s pine commended by neurology. No Complaints of chest pain, DC stress test
--- NOTE | 2019-03-16 06:07 | Cat Scan Report ---
CT head/brain wo con INDICATION: Right arm weakness. TECHNIQUE: All CT scans at this location are performed using the following dose modulation technique: Automated exposure control. CONTRAST: None. COMPARISON: None available. FINDINGS: The ventricular system is appropriate in size and configuration without midline shift. Nega tive for mass, stroke or hemorrhage. Imaged portions of the paranasal sinuses are clear. IMPRESSION: Negative CT brain without contrast. Code stroke: Called to Dr. Chacon in the emergency room at 4:55 AM. Signer Name: Nahid Mclean MD Signed: 03/16/2019 6:02 AM Workstation Name: [id number]
[2019-03-16] MEDS ORDERED: PHENERGAN PR PRN (06:29)
[2019-03-16] MEDS ORDERED: REGLAN PO PRN (06:29)
[2019-03-16] MEDS ORDERED: DULCOLAX PR PRN (06:29)
[2019-03-16] MEDS ORDERED: FLEXERIL PO PRN (06:57)
[2019-03-16] MEDS ORDERED: ULTRAM PO PRN (06:57)
[2019-03-16] MEDS ORDERED: NON-FORMULARY (Prednisone [Prednisone 10 Mg (6-Day Pack, 21 Tabs)] 10 MG) PO SCH (07:00)
[2019-03-16] MEDS ORDERED: LITHIUM CARBONATE 300 MG PO SCH (07:00)
[2019-03-16 07:13] LABS: Bilirubin,Urine NEG (Negative); Blood,Urine SM (Negative); Color,Urine Yellow (Yellow); Mucus,Urine FEW /HPF; Protein,Urine <15 mg/dL mg/dL (Negative); Urobilinogen,Urine < 2.0 mg/dL (<2.0)
[2019-03-16 07:18] LABS: Cannabinoid Screen,Urine PRESUMPTIVE NEGATIVE; Cocaine Screen,Urine PRESUMPTIVE NEGATIVE; Methadone Screen,Urine PRESUMPTIVE NEGATIVE
[2019-03-16 07:35] LABS: Amphetamine Screen,Urine PRESUMPTIVE POSITIVE; Benzodiazepines Screen,Urine PRESUMPTIVE POSITIVE; Opiate Screen,Urine PRESUMPTIVE POSITIVE
[2019-03-16 07:56] LABS: Chol/HDL Ratio 2.76 %
--- NOTE | 2019-03-16 09:59 | Progress Note ---
Subjective Date of service: 03/16/19 Interval history: patient seen and went over hx ...with girlfriend there is stroke of the right arm suspect diabetes as BS is elevated... plan MRI lithium level is 0.1 suspect lithium and olazipine contribted to heat intolerance.... will need to caution in future Objective - Vital Sign Vital Signs - 12hr 03/16/19 03/16/19 03/16/19 03:38 04:00 04:25 Temperature 97.8 F Pulse Rate 81 78 Respiratory 18 15 15 Rate Blood Pressure 112/76 Blood Pressure [Left] O2 Sat by Pulse 95 97 100 Oximetry 03/16/19 03/16/19 03/16/19 04:31 04:41 05:14 Temperature Pulse Rate 66 76 Respiratory 10 L 15 Rate Blood Pressure 61/28 47/16 47/16 Blood Pressure [Left] O2 Sat by Pulse 97 99 97 Oximetry 03/16/19 03/16/19 03/16/19 05:20 05:21 05:31 Temperature Pulse Rate 72 63 62 Respiratory 12 12 11 L Rate Blood Pressure 116/74 116/74 Blood Pressure 116/74 [Left] O2 Sat by Pulse 100 98 97 Oximetry 03/16/19 03/16/19 03/16/19 05:41 05:51 06:20 Temperature Pulse Rate 71 70 Respiratory 12 16 12 Rate Blood Pressure 116/74 116/74 Blood Pressure 127/78 [Left] O2 Sat by Pulse 100 Oximetry 03/16/19 03/16/19 03/16/19 06:31 06:41 07:22 Temperature Pulse Rate 68 Respiratory 9 L 16 Rate Blood Pressure 116/74 122/78 Blood Pressure [Left] O2 Sat by Pulse 100 99 Oximetry 03/16/19 08:03 Temperature 98.8 F Pulse Rate 64 Respiratory 18 Rate Blood Pressure 104/60 Blood Pressure [Left] O2 Sat by Pulse 97 Oximetry - Laboratory Findings CBC and BMP: 03/16/19 02:47 03/16/19 04:50 Abnormal Lab Findings: Abnormal Labs 03/16/19 03/16/19 03/16/19 02:47 04:50 04:50 Lymph % (Auto) 9.8 L Lymph # 1.0 L Seg Neutrophils % 82.9 H Seg Neutrophils # 8.7 H APTT 23.5 L Glucose 221 H POC Glucose AST 41 H Salicylates Acetaminophen 03/16/19 03/16/19 03/16/19 04:52 04:53 04:53 Lymph % (Auto) Lymph # Seg Neutrophils % Seg Neutrophils # APTT Glucose POC Glucose 223 H AST Salicylates < 0.3 L Acetaminophen < 5.0 L
[2019-03-16] MEDS ORDERED: DELTASONE PO SCH (10:00)
[2019-03-16] MEDS ORDERED: OLANZAPINE 10 MG PO SCH (10:00)
[2019-03-16] MEDS ORDERED: ASPIRIN PO SCH (10:00)
--- NOTE | 2019-03-16 11:13 | Magnetic Resonance Report ---
NONENHANCED MRI SCAN OF THE CERVICAL SPINE: INDICATION / CLINICAL INFORMATION: Right arm weakness. TECHNIQUE: Multisequence, multiplanar images of the cervical spine were obtained. COMPARISON: None available. FINDINGS: CRANIOCERVICAL JUNCTION:No significant abnormality. ALIGNMENT: No significant abnormality. VERTEBRAE:Normal marrow signal and vertebral body height for age. VISUALIZED SPINAL CORD: No significant abnormality. KDSSA-MA-HURMK ANALYSIS: C2-3: No significant disc abnormality, spinal canal stenosis, or neural foraminal stenosis. C3-4: No significant disc abnormality, spinal canal stenosis, or neural foraminal stenosis. C4-5: Focal midline bulging disc is seen. Neuroforamina are normal. C5-6: No significant disc abnormality, spinal canal stenosis, or neural foraminal stenosis. C6-7: Broad-based disc protrusion is seen extending laterally bilaterally more to the left side. Left neural foramen is stenotic. Spinal cord is not compromised. C7-T1: No significant disc abnormality, spinal canal stenosis, or neural foraminal stenosis. PARASPINAL SOFT TISSUES: No significant abnormality. ADDITIONAL FINDINGS: None. IMPRESSION: Broad-based disc protrusion extending bilaterally more to the left side at C6-C7 disc level; left daniel ral foramen is stenotic Focal midline bulging disc at C4-C5 disc level Other cervical disc levels are normal. Signer Name: Natali Alcala MD Signed: 03/16/2019 11:08 AM Workstation Name: [email or web address]
[2019-03-16] MEDS: LOVENOX SUB-Q SCH (11:25)
[2019-03-16] MEDS: ECOTRIN PO SCH (11:25)
[2019-03-16] MEDS: SODIUM CHLORIDE FLUSH SYRINGE 10 ML IV SCH ×2 (11:26→22:36)
[2019-03-16] MEDS: PROzac PO SCH (11:26)
[2019-03-16] MEDS: HABITROL TD SCH (11:48)
--- NOTE | 2019-03-16 13:48 | Event Note ---
Date: 03/16/19 Patient clinically stable at this time, still with Right arm weakness. Requesting to go out to smoke, request denied, nicotin patch ordered. UDS noted. Counselling provided
--- NOTE | 2019-03-16 13:50 | Magnetic Resonance Report ---
MRI BRAIN WITHOUT CONTRAST INDICATION / CLINICAL INFORMATION: Right arm numbness TECHNIQUE: Multiplanar, multisequence MR images of the brain were obtained. COMPARISON: CT scan obtained earlier today FINDINGS: BRAIN / INTRACRANIAL CONTENTS: No acute ischemia, acute hemorrhage, mass effect, midline shift, or hy drocephalus. No chronic infarct or atrophy. Multiple periventricular white matter lesions ([place] 1 ) seen. If there is history of hypertension, these could be due to microvascular faint angiopathy. Br ainstem and cerebellar spheres are normal. I do not see an acute infarction in the left corticospinal tract. CRANIOCERVICAL JUNCTION: No significant abnormality. VASCULAR FLOW-VOIDS: No significant abnormality. ORBITS: No significant abnormality of visualized orbits. SINUSES / MASTOIDS: Mucosal thickening is seen in the ethmoid air cells bilaterally and to a lesser d egree in the sphenoid and maxillary sinuses. ADDITIONAL FINDINGS: None. IMPRESSION: I do not see an acute parenchymal lesion in the brain. Signer Name: Natali Alcala MD Signed: 03/16/2019 1:46 PM Workstation Name: [id number]
--- NOTE | 2019-03-16 13:53 | Magnetic Resonance Report ---
MRA HEAD WITHOUT CONTRAST HISTORY: Right arm numbness COMPARISON: None. TECHNIQUE: Routine MRA of the head is performed. 3-D/MIP reformats postprocessed. CONTRAST: None. FINDINGS: Intracranial vertebral arteries: Intradural segments of both vertebral arteries and origins of PICA a re normal. Basilar artery: Basilar formation, basilar artery and the basilar tip are normal. Posterior cerebral arteries: Normal. Intracranial internal carotid arteries: Normal from skull base to termination. Ophthalmic and the com municating segments are normal. Anterior cerebral arteries: No significant abnormality. Middle cerebral arteries: No significant abnormality. Additional findings: None. IMPRESSION: 1. Normal MRA of the brain. Signer Name: Natali Alcala MD Signed: 03/16/2019 1:49 PM Workstation Name: [id number]
--- NOTE | 2019-03-16 14:48 | Progress Note ---
Subjective Date of service: 03/16/19 Interval history: MRI IS NORMAL AND DISC DISEASE IS MINIML ON THE LEFT SIDE THAT IS OPPOSITE TO THE SYMPTOMS WILL REVIEW FURTHER tHANKS Objective - Vital Sign Vital Signs - 12hr 03/16/19 03/16/19 03/16/19 03:38 04:00 04:25 Temperature 97.8 F Pulse Rate 81 78 Respiratory 18 15 15 Rate Blood Pressure 112/76 Blood Pressure [Left] O2 Sat by Pulse 95 97 100 Oximetry 03/16/19 03/16/19 03/16/19 04:31 04:41 05:14 Temperature Pulse Rate 66 76 Respiratory 10 L 15 Rate Blood Pressure 61/28 47/16 47/16 Blood Pressure [Left] O2 Sat by Pulse 97 99 97 Oximetry 03/16/19 03/16/19 03/16/19 05:20 05:21 05:31 Temperature Pulse Rate 72 63 62 Respiratory 12 12 11 L Rate Blood Pressure 116/74 116/74 Blood Pressure 116/74 [Left] O2 Sat by Pulse 100 98 97 Oximetry 03/16/19 03/16/19 03/16/19 05:41 05:51 06:20 Temperature Pulse Rate 71 70 Respiratory 12 16 12 Rate Blood Pressure 116/74 116/74 Blood Pressure 127/78 [Left] O2 Sat by Pulse 100 Oximetry 03/16/19 03/16/19 03/16/19 06:31 06:41 07:16 Temperature Pulse Rate 68 62 Respiratory 9 L Rate Blood Pressure 116/74 122/78 Blood Pressure [Left] O2 Sat by Pulse 100 99 Oximetry 03/16/19 03/16/19 07:22 08:03 Temperature 98.8 F Pulse Rate 64 Respiratory 16 18 Rate Blood Pressure 104/60 Blood Pressure [Left] O2 Sat by Pulse 97 Oximetry - Laboratory Findings CBC and BMP: 03/16/19 02:47 03/16/19 04:50 Abnormal Lab Findings: Abnormal Labs 03/16/19 03/16/19 03/16/19 02:47 04:50 04:50 Lymph % (Auto) 9.8 L Lymph # 1.0 L Seg Neutrophils % 82.9 H Seg Neutrophils # 8.7 H APTT 23.5 L Glucose 221 H POC Glucose AST 41 H Salicylates Acetaminophen 03/16/19 03/16/19 03/16/19 04:52 04:53 04:53 Lymph % (Auto) Lymph # Seg Neutrophils % Seg Neutrophils # APTT Glucose POC Glucose 223 H AST Salicylates < 0.3 L Acetaminophen < 5.0 L
[2019-03-16] MEDS: ESKALITH PO SCH ×2 (14:55→22:36)
--- NOTE | 2019-03-16 20:00 | Consultation ---
HISTORY OF PRESENT ILLNESS: A 39-year-old black male admitted to [facility] on 03/16/2019. The patient presented to the Emergency Room with onset of weakness involving the right arm following sensory loss and weakness and presented to the Emergency Room, initially had a stroke scale per review, which was 2. He had a CT scan of the head, which was reviewed initially by the radiologist and it was within normal limits and negative for any acute changes. I did subsequently myself have reviewed this CT scan and I would call it within normal limits, although there are some questionable changes in the deep white matter, which I did note present bilaterally. I do not think any more so over the right and left, seems to be symmetrical, these are on the more cephalad cuts, but I would still call this within normal limits. The patient has a prior medical history of being on olanzapine, lithium carbonate. I did notice lithium carbonate level was 0.1. His glucose was elevated at 221. He does not take antihypertensive medications, reviewing his medication list from home. He takes lithium carbonate 300 mg 3 times a day, olanzapine 10 mg daily. He is not on any antihypertensives or diabetic medications. He has no known allergies. 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 FAMILY HISTORY: Unremarkable. PHYSICAL EXAMINATION: VITAL SIGNS: Reveals his blood pressure to be 122/78, pulse rate is 68, respirations are 18. The patient's pO2 on room air is 99%. NEUROLOGIC: Cranial nerves 2-12 intact. Slight drift to the right upper extremity is present. No facial weakness is noted. Gait was not tested. Cranial nerves are intact. The patient's visual palomino are full. Affect appropriate. No other focal motor or sensory loss is noted. No seizure activity present. No dystonia. No abnormal tremors are noted. IMPRESSION: Onset of weakness involving the right arm isolated, suspect probably a minor lacunar stroke. He does have diabetes, also did note that he has been taking lithium carbonate, olanzapine. 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 I did offer the observation. We will check his MRI. Check his carotid ultrasound, echocardiogram, testing is to be undertaken an evaluation of a vascular cause of stroke, which is likely ischemic. He does not seem to have by clinical features any rhabdomyolysis, which is of course a very serious complication of taking atypical antipsychotics with heat exposure. JOB# [id number] MARIE/SUKHDEEP
[2019-03-17] MEDS: ESKALITH PO SCH ×3 (07:00→21:10)
[2019-03-17 09:06] LABS: Basophils % (Auto) 0.3 % (0.0-1.8); Eosinophils # (Auto) 0.3 K/mm3 (0.0-0.4); Eosinophils % (Auto) 5.2 % (0.0-4.3); Hematocrit 39.2 % (35.5-45.6); Hemoglobin 12.7 gm/dl (11.8-15.2); Lymphocytes # (Auto) 1.4 K/mm3 (1.2-5.4); Lymphocytes % (Auto) 27.1 % (13.4-35.0); Mean Corpuscular HGB Conc 33 % (32-34); Mean Corpuscular Volume 92 fl (84-94); Monocytes # (Auto) 0.3 K/mm3 (0.0-0.8); Monocytes % (Auto) 6.4 % (0.0-7.3); Platelet Count 186 K/mm3 (140-440); Red Blood Count 4.28 M/mm3 (3.65-5.03); Red Cell Distribution Width 13.4 % (13.2-15.2)
[2019-03-17 09:21] LABS: BUN/Creatinine Ratio 10; Blood Urea Nitrogen 10 mg/dL (9-20); Calcium 8.9 mg/dL (8.4-10.2); Hemolysis Index 4
--- NOTE | 2019-03-17 09:52 | Progress Note ---
Subjective Date of service: 03/17/19 Interval history: improved function in the right arm this could be brachial plexitis doubt pure stroke since MRI negative does not exactly fit pattern of Radial nerve palsy can wiggle fingers and pecular sensation of the finger tingling seems like periheral as opposed to central ( central loss more like numbness) will have PT see explained x to the patient Objective - Vital Sign Vital Signs - 12hr 03/16/19 03/16/19 03/16/19 22:00 23:00 23:41 Temperature 98.0 F Pulse Rate 68 68 Pulse Rate [ 63 Left Radial] Pulse Rate [ 63 Right Radial] Respiratory 18 18 Rate Blood Pressure 117/63 O2 Sat by Pulse 99 96 Oximetry 03/17/19 03/17/19 05:08 07:44 Temperature 98.0 F 98.7 F Pulse Rate 58 L 55 L Pulse Rate [ Left Radial] Pulse Rate [ Right Radial] Respiratory 18 18 Rate Blood Pressure 127/81 138/84 O2 Sat by Pulse 99 100 Oximetry - Laboratory Findings CBC and BMP: 03/17/19 08:10 03/17/19 08:10 Abnormal Lab Findings: Abnormal Labs 03/16/19 03/16/19 03/16/19 02:47 04:50 04:50 Lymph % (Auto) 9.8 L Eos % (Auto) Lymph # 1.0 L Seg Neutrophils % 82.9 H Seg Neutrophils # 8.7 H APTT 23.5 L Glucose 221 H POC Glucose AST 41 H Salicylates Acetaminophen 03/16/19 03/16/19 03/16/19 04:52 04:53 04:53 Lymph % (Auto) Eos % (Auto) Lymph # Seg Neutrophils % Seg Neutrophils # APTT Glucose POC Glucose 223 H AST Salicylates < 0.3 L Acetaminophen < 5.0 L 03/17/19 03/17/19 08:10 08:10 Lymph % (Auto) Eos % (Auto) 5.2 H Lymph # Seg Neutrophils % Seg Neutrophils # APTT Glucose 117 H POC Glucose AST Salicylates Acetaminophen
[2019-03-17] MEDS: PROzac PO SCH (10:58)
[2019-03-17] MEDS: LOVENOX SUB-Q SCH (10:59)
[2019-03-17] MEDS: HABITROL TD SCH (10:59)
[2019-03-17] MEDS: ECOTRIN PO SCH (10:59)
[2019-03-17] MEDS: SODIUM CHLORIDE FLUSH SYRINGE 10 ML IV SCH ×2 (11:00→21:11)
[2019-03-17] MEDS: DELTASONE PO SCH (11:12)
--- NOTE | 2019-03-17 18:10 | Progress Note ---
Assessment and Plan Assessment and plan: Pt is a 39 year old male with PMHx of bipolar disorder, depression and asthma who presents to the ER with c/o right arm weakness and pain. Pt states that he woke up around 2 am with inability to move the right arm. Pt denies any injury of the arm, he denies any h/o high BP, he denies any family of stroke but reports a self h/o of small stroke while incarcerated some times ago. Pt reports a burning sensation from the upper arm down to his lower arm, he reports pain and tinglin of his fingers in the right arm. Pt reports complete inability to move the arm or shrug at right shoulder. His speech is clear and coherent, all other exam are WNL. Review of pt's medical record showed that pt had multiple hospital visits for back pain or arm pain. A CT of the brain was negative, pt is admitted for further evaluation and treatment. MRI cervical spine: IMPRESSION: Broad-based disc protrusion extending bilaterally more to the left side at C6-C7 disc level; left neural foramen is st enotic Focal midline bulging disc at C4-C5 disc level Other cervical disc levels are normal. MRI brain: IMPRESSION: I do not see an acute parenchymal lesion in the brain. CT JHEAD: IMPRESSION: Negative CT brain without contrast. Right arm numbness and weakness R/o Acute CVA H/o prior CVA (per Pt) Bipolar disorder Depression Asthma Drug used disorder Plan: PER NEUROLOGY: improved function in the right arm this could be brachial plexitis doubt pure stroke since MRI negative does not exactly fit pattern of Radial nerve palsy can wiggle fingers and pecular sensation of the finger tingling seems like periheral as opposed to central ( central loss more like numbness) will have PT see Continue neuro check Q4hr MRI of the brain- NOTDD MRA of the head and neck-NOTED 2D echo resume home meds DVT prophylaxis with SD Further plan per neurology recommendation Consult PT/OT Consult case management for DC plan History Interval history: Patient seen and examined, still complains of right upper ext weakness. Patient is able to move fingers. Hospitalist Physical - Physical exam Narrative exam: General appearance: Present: no acute distress - EENT Eyes: Present: PERRL ENT: hearing intact - Neck Neck: Present: normal ROM - Respiratory Respiratory effort: normal Respiratory: bilateral: CTA - Cardiovascular Rhythm: regular - Extremities Extremities: no ischemia, No edema Peripheral Pulses: within normal limits - Abdominal General gastrointestinal: Present: non-tender, non-distended Male genitourinary: Present: deferred - Rectal Rectal Exam: deferred - Integumentary Integumentary: Present: warm, dry - Musculoskeletal Musculoskeletal: right sided weakness (right arm weakness) - Psychiatric Psychiatric: cooperative - Neurologic Neurologic: focal deficits (right arm numbness), moves fingers - Constitutional Vitals: Temp Pulse Resp BP Pulse Ox 98.1 F 65 18 136/69 98 03/17/19 16:09 03/17/19 16:09 03/17/19 16:09 03/17/19 16:09 03/17/19 16:09 General appearance: Present: no acute distress Results - Labs CBC & Chem 7: 03/17/19 08:10 03/17/19 08:10 Labs: Laboratory Last Values WBC 5.3 K/mm3 (4.5-11.0) 03/17/19 08:10 RBC 4.28 M/mm3 (3.65-5.03) 03/17/19 08:10 Hgb 12.7 gm/dl (11.8-15.2) 03/17/19 08:10 Hct 39.2 % (35.5-45.6) 03/17/19 08:10 MCV 92 fl (84-94) 03/17/19 08:10 MCH 30 pg (28-32) 03/17/19 08:10 MCHC 33 % (32-34) 03/17/19 08:10 RDW 13.4 % (13.2-15.2) 03/17/19 08:10 Plt Count 186 K/mm3 (140-440) 03/17/19 08:10 Lymph % (Auto) 27.1 % (13.4-35.0) 03/17/19 08:10 [place] % (Auto) 6.4 % (0.0-7.3) 03/17/19 08:10 Eos % (Auto) 5.2 % (0.0-4.3) H 03/17/19 08:10 Baso % (Auto) 0.3 % (0.0-1.8) 03/17/19 08:10 Lymph # 1.4 K/mm3 (1.2-5.4) 03/17/19 08:10 [place] # 0.3 K/mm3 (0.0-0.8) 03/17/19 08:10 Eos # 0.3 K/mm3 (0.0-0.4) 03/17/19 08:10 Baso # 0.0 K/mm3 (0.0-0.1) 03/17/19 08:10 Seg Neutrophils % 61.0 % (40.0-70.0) 03/17/19 08:10 Seg Neutrophils # 3.2 K/mm3 (1.8-7.7) 03/17/19 08:10 PT 12.9 Sec. (12.2-14.9) 03/16/19 04:50 INR 1.00 (0.87-1.13) 03/16/19 04:50 APTT 23.5 Sec. (24.2-36.6) L 03/16/19 04:50 Sodium 142 mmol/L (137-145) 03/17/19 08:10 Potassium 4.3 mmol/L (3.6-5.0) 03/17/19 08:10 Chloride 106.5 mmol/L (98-107) 03/17/19 08:10 Carbon Dioxide 27 mmol/L (22-30) 03/17/19 08:10 13 mmol/L 03/17/19 08:10 BUN 10 mg/dL (9-20) 03/17/19 08:10 1.0 mg/dL (0.8-1.5) 03/17/19 08:10 Estimated GFR > 60 ml/min 03/17/19 08:10 10 % 03/17/19 08:10 Glucose 117 mg/dL (75-100) H 03/17/19 08:10 POC Glucose 223 (70-105) H 03/16/19 04:52 4.9 % (4-6) 03/16/19 12:05 Calcium 8.9 mg/dL (8.4-10.2) 03/17/19 08:10 1.10 mg/dL (0.1-1.2) 03/16/19 04:50 AST 41 units/L (5-40) H 03/16/19 04:50 ALT 19 units/L (7-56) 03/16/19 04:50 99 units/L (35-129) 03/16/19 04:50 < 0.010 ng/mL (0.00-0.029) 03/16/19 17:40 7.0 g/dL (6.3-8.2) 03/16/19 04:50 4.3 g/dL (3.9-5) 03/16/19 04:50 1.6 % 03/16/19 04:50 Triglycerides 54 mg/dL (2-149) 03/16/19 07:08 Cholesterol 127 mg/dL (50-199) 03/16/19 07:08 88 mg/dL (50-130) 03/16/19 07:08 46 mg/dL (40-59) 03/16/19 07:08 2.76 % 03/16/19 07:08 Yellow (Yellow) 03/16/19 Unknown Clear (Clear) 03/16/19 Unknown 5.0 (5.0-7.0) 03/16/19 Unknown Ur Specific [place] 1.025 (1.003-1.030) 03/16/19 Unknown <15 mg/dl mg/dL (Negative) 03/16/19 Unknown Neg mg/dL (Negative) 03/16/19 Unknown Tr mg/dL (Negative) 03/16/19 Unknown Sm (Negative) 03/16/19 Unknown Neg (Negative) 03/16/19 Unknown Neg (Negative) 03/16/19 Unknown < 2.0 mg/dL (<2.0) 03/16/19 Unknown Ur Leukocyte Esterase Neg (Negative) 03/16/19 Unknown 1.0 /HPF (0.0-6.0) 03/16/19 Unknown 1.0 /HPF (0.0-6.0) 03/16/19 Unknown Few /HPF 03/16/19 Unknown Salicylates < 0.3 mg/dL (2.8-20.0) L 03/16/19 04:53 Presumptive positive 03/16/19 Unknown Presumptive negative 03/16/19 Unknown Acetaminophen < 5.0 ug/mL (10.0-30.0) L 03/16/19 04:53 Ur Barbiturates Screen Presumptive negative 03/16/19 Unknown Ur Phencyclidine Scrn Presumptive negative 03/16/19 Unknown Ur Amphetamines Screen Presumptive positive 03/16/19 Unknown U Benzodiazepines Scrn Presumptive positive 03/16/19 Unknown [place] 0.1 mmol/L (0.0-1.2) 03/16/19 04:53 Presumptive negative 03/16/19 Unknown U Marijuana (THC) Screen Presumptive negative 03/16/19 Unknown Disclamer 03/16/19 Unknown Plasma/Serum Alcohol < 0.01 % (0-0.07) 03/16/19 04:50 Active Medications - Current Medications Current Medications: Generic Name Dose Route Start Last Admin Trade Name Freq PRN Reason Stop Dose Admin Acetaminophen 650 mg 03/16/19 05:53 Tylenol PO Q4H PRN Pain MILD(1-3)/Fever >100.5/MEJIA Aspirin 325 mg 03/16/19 10:00 03/17/19 10:59 Ecotrin PO 325 mg QDAY NATALIYA Administration Atorvastatin Calcium 40 mg 03/16/19 22:00 03/16/19 22:36 Lipitor PO 40 mg QHS NATALIYA Administration Bisacodyl 10 mg 03/16/19 06:29 Dulcolax MT QDAY PRN Constipation Cyclobenzaprine HCl 10 mg 03/16/19 06:57 Flexeril PO TID PRN Muscle Spasm Enoxaparin Sodium 40 mg 03/16/19 10:00 03/17/19 10:59 Lovenox SUB-Q 40 mg QDAY NATALIYA Administration Fluoxetine HCl 10 mg 03/16/19 10:00 03/17/19 10:58 Prozac PO 10 mg QDAY NATALIYA Administration [place] Carbonate 300 mg 03/16/19 14:00 03/17/19 15:23 Eskalith PO 300 mg Q8HR NATALIYA Administration Magnesium Hydroxide 30 ml 03/16/19 06:29 Milk Of Magnesia PO Q4H PRN Constipation Metoclopramide HCl 10 mg 03/16/19 06:29 Reglan PO Q6H PRN Nausea And Vomiting Morphine Sulfate 2 mg 03/16/19 05:53 03/16/19 07:22 Morphine IV 2 mg Q4H PRN Administration Pain, Moderate (4-6) Nicotine 21 mg 03/16/19 12:00 03/17/19 10:59 Habitrol TD 21 mg QDAY NATALIYA Administration Olanzapine 10 mg 03/16/19 10:00 03/17/19 11:00 Zyprexa PO Not Given DAILY NATALIYA Ondansetron HCl 4 mg 03/16/19 06:29 Zofran IV Q8H PRN Nausea And Vomiting Prednisone 20 mg 03/17/19 10:00 03/17/19 11:12 Deltasone PO 20 mg QDAY NATALIYA Administration Promethazine HCl 25 mg 03/16/19 06:29 Phenergan MT Q6H PRN Nausea And Vomiting Sodium Chloride 10 ml 03/16/19 10:00 03/17/19 11:00 Sodium Chloride Flush Syringe 10 Ml IV 10 ml BID NATALIYA Administration Sodium Chloride 10 ml 03/16/19 06:29 Sodium Chloride Flush Syringe 10 Ml IV PRN PRN LINE FLUSH Tramadol HCl 50 mg 03/16/19 06:57 Ultram PO Q6HR PRN Pain Nutrition/Malnutrition Assess - Dietary Evaluation Nutrition/Malnutrition Findings: Nutrition Notes Start: 03/16/19 15:04 Freq: Status: Active Protocol: Document 03/16/19 15:04 MARIE (Rec: 03/16/19 15:06 MARIE SRW- [email or web address]) Nutrition Notes Need for Assessment generated from: MD Order,Education Initial or Follow up Brief Note Other Pertinent Diagnosis RUE numbness/weakness, Chest pain Current Diet Cardiac Pertinent Medications BG 221 Subjective/Other Information RD consulted for diet education and NTR recommendations. Pt sleeping soundly at time of visit (13: 19). Lipid panel and BP both WNL. BG elevated though. Nutrition Intervention Follow-Up By: 03/18/19 Additional Comments F/U: diet education (food sources of CHO)
[2019-03-18] MEDS: ESKALITH PO SCH ×2 (05:55→14:02)
--- NOTE | 2019-03-18 07:56 | Progress Note ---
Subjective Date of service: 03/18/19 Interval history: I did start the pastient on low dose steriods yesterday as of then problem slowly resolving doubt this is spinal cord origin based on exam more likely brachial plexus Objective - Vital Sign Vital Signs - 12hr 03/17/19 03/17/19 03/17/19 20:59 21:02 21:14 Temperature 98.0 F Pulse Rate 67 Pulse Rate [ 67 From Monitor] Pulse Rate [ 67 Left Radial] Pulse Rate [ 67 Right Radial] Respiratory 18 18 Rate Blood Pressure 114/68 O2 Sat by Pulse 96 96 Oximetry 03/17/19 03/18/19 03/18/19 23:00 06:25 06:28 Temperature 97.6 F Pulse Rate 67 52 L Pulse Rate [ From Monitor] Pulse Rate [ Left Radial] Pulse Rate [ Right Radial] Respiratory 18 Rate Blood Pressure 125/77 O2 Sat by Pulse 98 Oximetry - Laboratory Findings CBC and BMP: 03/17/19 08:10 03/17/19 08:10 Abnormal Lab Findings: Abnormal Labs 03/16/19 03/16/19 03/16/19 02:47 04:50 04:50 Lymph % (Auto) 9.8 L Eos % (Auto) Lymph # 1.0 L Seg Neutrophils % 82.9 H Seg Neutrophils # 8.7 H APTT 23.5 L Glucose 221 H POC Glucose AST 41 H Salicylates Acetaminophen 03/16/19 03/16/19 03/16/19 04:52 04:53 04:53 Lymph % (Auto) Eos % (Auto) Lymph # Seg Neutrophils % Seg Neutrophils # APTT Glucose POC Glucose 223 H AST Salicylates < 0.3 L Acetaminophen < 5.0 L 03/17/19 03/17/19 08:10 08:10 Lymph % (Auto) Eos % (Auto) 5.2 H Lymph # Seg Neutrophils % Seg Neutrophils # APTT Glucose 117 H POC Glucose AST Salicylates Acetaminophen
[2019-03-18] MEDS: HABITROL TD SCH (10:21)
[2019-03-18] MEDS: LOVENOX SUB-Q SCH (10:21)
[2019-03-18] MEDS: PROzac PO SCH (10:22)
[2019-03-18] MEDS: DELTASONE PO SCH (10:22)
[2019-03-18] MEDS: ECOTRIN PO SCH (10:22)
[2019-03-18] MEDS: SODIUM CHLORIDE FLUSH SYRINGE 10 ML IV SCH (10:22)
[2019-03-18 11:48] VITALS: BP 112/73
--- NOTE | 2019-03-18 15:34 | Discharge Summary ---
Providers - Providers Date of Admission: 03/16/19 06:22 Attending physician: ANN DURAND MD 03/16/19 Consult to Cardiac Rehabilitation [CONS] Routine Reason For Exam: Phase 1 03/16/19 06:30 Consult to Case Management [CONS] Routine Services Needed at Discharge: Physical Therapy Notified:: case management Consult to Dietitian/Nutrition [CONS] Routine Physician Instructions: Reason For Exam: Reason for Consult: Nutrition Recommendations Reason for Consult: Diet education Occupational Therapy Evaluate and Treat [CONS] Routine Comment: Reason For Exam: Neuro deficits Physical Therapy Evaluation and Treat [CONS] Routine Comment: Reason For Exam: Neuro deficits 03/16/19 06:55 Consult to Physician [CONS] Routine Comment: Consulting Provider: ROGELIO WRIGHT Physician Instructions: Reason For Exam: rt arm weakness/numb [facility] Condition: Stable Hospital course: Pt is a 39 year old male with PMHx of bipolar disorder, depression and asthma who presents to the ER with c/o right arm weakness and pain. Pt states that he woke up around 2 am with inability to move the right arm. Pt denies any injury of the arm, he denies any h/o high BP, he denies any family of stroke but reports a self h/o of small stroke while incarcerated some times ago. Pt reports a burning sensation from the upper arm down to his lower arm, he reports pain and tinglin of his fingers in the right arm. Pt reports complete inability to move the arm or shrug at right shoulder. His speech is clear and coherent, all other exam are WNL. Review of pt's medical record showed that pt had multiple hospital visits for back pain or arm pain. A CT of the brain was negative, pt is admitted for further evaluation and treatment. MRI cervical spine: IMPRESSION: Broad-based disc protrusion extending bilaterally more to the left side at C6-C7 disc level; left neural foramen is stenotic Focal midline bulging disc at C4-C5 disc level Other cervical disc levels are normal. MRI brain: IMPRESSION: I do not see an acute parenchymal lesion in the brain. CT JHEAD: IMPRESSION: Negative CT brain without contrast. Right arm numbness and weakness R/o Acute CVA H/o prior CVA (per Pt) Bipolar disorder Depression Asthma Drug used disorder Plan: PER NEUROLOGY: improved function in the right arm this could be brachial plexitis doubt pure stroke since MRI negative does not exactly fit pattern of Radial nerve palsy can wiggle fingers and pecular sensation of the finger tingling seems like periheral as opposed to central ( central loss more like numbness) will have PT see Continue neuro check Q4hr MRI of the brain- NOTDD MRA of the head and neck-NOTED 2D echo resume home meds DVT prophylaxis with SD Further plan per neurology recommendation Consult PT/OT Consult case management for DC plan Disposition: [id number]/[place]-06 HOME UNDER HOME [facility] Time spent for discharge: 35 mins Exam - Constitutional Vitals: Temp Pulse Resp BP Pulse Ox 97.8 F 61 16 112/73 98 03/18/19 11:44 03/18/19 11:44 03/18/19 11:44 03/18/19 11:44 03/18/19 11:44 Plan Activity: advance as tolerated, fall precautions Diet: low fat Special Instructions: record daily BP diary, record blood sugar diary Follow up with: DESIRE HAIDEROACOMA MD PAUL [Primary Care Provider] - 7 Days ROGELIO WRIGHT MD [Staff Physician] - 7 Days Prescriptions: AtorvaSTATin [Lipitor] 40 mg PO QHS #30 tablet Aspirin [Adult Aspirin] 81 mg PO DAILY #30 tablet. predniSONE [Deltasone] 20 mg PO QDAY #10 tablet Nicotine [Habitrol] 21 mg TD QDAY #30 patch
== END 2019-03-18 17:56 | disposition home or self-care (01) | DRG 74 ==
LOC: ED 03:25 → 4A 06:22
PROVIDERS: ADMIT Internal Medicine; ATTEND Internal Medicine
DX: G54.0 Brachial plexus disorders (principal); F31.9 Bipolar disorder, unspecified; E11.9 Type 2 diabetes mellitus without complications; F17.210 Nicotine dependence, cigarettes, uncomplicated; J45.909 Unspecified asthma, uncomplicated; F19.99 Other psychoactive substance use, unspecified with unspecified psychoactive substance-induced disorder; Z86.73 Personal history of transient ischemic attack (TIA), and cerebral infarction without residual deficits; Z79.899 Other long term (current) drug therapy; Z79.84 Long term (current) use of oral hypoglycemic drugs; Z71.6 Tobacco abuse counseling
CPT/HCPCS: 36415; 70450; 70544; 70551; 72141; 80048; 80053; 80061; 80178; 80307; 80320; 81001; 82962; 83036; 84484; 85025; 85610; 85730; 87116; 93005; 93010; 99406; G0378; A9270-GY; G0480; J1650; J2270; J7030; J7512